=== PATIENT | female | born 1930 | race African-American/Black ===

== ENCOUNTER → 2016-06-05 | Outpatient (CLI) | payer MEDICARE | END | disposition home or self-care (01) | LOC: PCVCCLINIC 16:26 | PROVIDERS: ATTEND Internal Medicine Cardiovascular Disease | DX: E78.5 Hyperlipidemia, unspecified (principal); R01.1 Cardiac murmur, unspecified; R06.00 Dyspnea, unspecified; R53.83 Other fatigue; E78.01 Familial hypercholesterolemia; R00.0 Tachycardia, unspecified; R29.6 Repeated falls; G45.9 Transient cerebral ischemic attack, unspecified; I74.9 Embolism and thrombosis of unspecified artery | CPT/HCPCS: 80061; G0463 ==